=== PATIENT | female | born 1935 | race Caucasian/White ===

== ENCOUNTER → 2018-10-11 | Outpatient (CLI) | payer OTHER, BC ==
[~2018-10-11] MED LIST: ADVAIR 100-501 EACH IH; AMLODIPINE BESY10 MG PO; AMLODIPINE PO; ANTI-ITCH28.4 GM TP; ASPIR 8181 MG PO; ASPIRIN PO; ATORVASTATIN CA40 MG PO; AVELOX 400 MG400 MG PO; BENADRYL ITCH28.3 G1 TP; CALCIUM 600 +1 EAC1 PO; COLACE 100 MG100 MG OR; DENAVIR1.5 GM; FAMOTIDINE PO; FUROSEMIDE10 MG/1 M2 PO; IBUPROFEN200 M1 PO; KEFLEX500 MG PO; LASIX 40 MG TAB40 M1 PO; LORTAB OR; MULTIVITAMINS PO; NOVOLOG FLEX PEN SQ; PLAVIX 75 MG TA75 MG PO; PREDNISONE 20 M20 MG PO; PROVENTIL HFA6.7 G1 INH; PYRIDIUM200 MG PO; SENNA PO; SIMVASTATIN40 MG PO; SINGULAIR 10 MG10 M1 PO; TYLENOL325 MG PO; VENTOLIN HFA 1818 GM INH; VITAMIN D1000 UNI1 PO; VITAMINC500 PO; XANAX 0.5 MG0.5 M1 PO
== END ==
LOC: RAD 09-27 01:31
DX: R92.8 Other abnormal and inconclusive findings on diagnostic imaging of breast (principal)

== ENCOUNTER 2019-01-14 23:10 | Emergency (ER) | payer OTHER, BC ==
[~2019-01-14] VITALS: Ht 167.6 cm; Wt 65.8 kg
[2019-01-14 23:37] LABS: BE(vivo) -4.9 mmol/L (-2 to +3); HCO3 23.2 mmol/L (22.0-26.0); PCO2 57.8 mmHg (35.0-45.0)
[2019-01-14 23:38] LABS: pH 7.221 (7.360-7.450)
[2019-01-14 23:38] LABS: HEMATOCRIT 32.3 % (37.0-47.0); HEMOGLOBIN 10.3 gm/dL (12.0-15.0); MCH 30.8 pg (26.0-34.0); MCV 96.1 fL (80.0-100.0); PLATELET COUNT 359 thou/uL (150-400); RBC 3.36 mil/uL (4.20-5.00); RDW 13.8 % (10.5-14.5); WBC 16.3 thou/uL (4.0-11.0)
[2019-01-14 23:49] LABS: CALCIUM 9.9 mg/dL (8.5-10.1); CREATININE 1.7 mg/dL (0.6-1.0); POTASSIUM 4.8 mmol/L (3.5-5.1)
[2019-01-14 23:56] LABS: ALBUMIN 2.9 g/dL (3.4-5.0); DIRECT BILIRUBIN 0.3 mg/dL (<0.1-0.3); TOTAL BILIRUBIN 0.5 mg/dL (<0.1-1.0); TOTAL PROTEIN 7.6 g/dL (6.4-8.2)
[2019-01-15] MEDS ORDERED: HUMALOG100 UNIT/1 SUBQ (00:26)
[2019-01-15] MEDS ORDERED: FIBER LAX625 MG PO (00:27)
[2019-01-15] MEDS ORDERED: VALSARTAN160 MG PO (00:28)
[2019-01-15] MEDS ORDERED: CRESTOR20 MG PO (00:29)
[2019-01-15] MEDS ORDERED: VITAMIN D3400 UNIT PO (00:30)
[2019-01-15] MEDS ORDERED: SANCTURA XR PO (00:31)
[2019-01-15] MEDS ORDERED: APPLE CIDER VI300 MG (00:32)
[2019-01-15] MEDS ORDERED: PROTONIX40 M1 PO (00:33)
[2019-01-15] MEDS ORDERED: XANAX 0.25 MG0.25 MG PO (00:38)
[2019-01-15 00:55] LABS: ABSOLUTE NEUTROPHILS 11.9 thou/uL (1.4-8.2)
[2019-01-15 05:07] LABS: HCO3 24.1 mmol/L (22.0-26.0); PCO2 58.9 mmHg (35.0-45.0); PO2 85.7 mmHg (80.0-100.0); sO2 94.5 % (92.0-98.0)
[2019-01-15 05:09] LABS: pH 7.229 (7.360-7.450)
[2019-01-15 05:15] LABS: URINE BILIRUBIN 1+ (Negative); URINE BLOOD 2+ (Negative); URINE CLARITY SL CLOUDY; URINE COLOR YELLOW; URINE GLUCOSE-RANDOM* 1+ (Negative); URINE KETONES NEGATIVE (Negative); URINE NITRITE-REFLEX NEGATIVE (Negative); URINE PROTEIN (DIPSTICK) 2+ (Negative); URINE SPECIFIC GRAVITY >= 1.030 (1.005-1.035)
[2019-01-15 05:19] LABS: URINE LEUKOCYTES-REFLEX 1+ (Negative)
[2019-01-15 05:20] LABS: ICTOTEST (BILI CONFIRMATORY) Positive (Negative)
[2019-01-15 05:24] LABS: COARSE GRANULAR CASTS 0-3 Few /LPF (None Seen); FINE GRANULAR CASTS 4-10 Moderate /LPF (None Seen); HYALINE CASTS >10 Many /LPF (None Seen); MUCUS 4-6 Moderate strn/LPF (None Seen); SQUAMOUS >10 Many /LPF (0-3); WBC CASTS 0-3 Few /LPF (None Seen)
[2019-01-15 05:25] LABS: BACTERIA-REFLEX >30 Many /HPF (None Seen); CRYSTALS None Seen /LPF (None Seen); RENAL EPITHELIAL CELLS 0-3 Few /LPF (None Seen); TRANSITIONAL EPITHEL CELL 4-10 Moderate /LPF (None Seen); URINE RBC 3-10 Few /HPF (0-2); URINE WBC-REFLEX 6-15 Few /HPF (0-5)
[2019-01-15 08:03] VITALS: BP 103/40
--- NOTE | 2019-01-16 08:07 | EKG ---
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1935 Requested By: Cindy Palacios Order Number: [id number] MD: Rudy Cao Measurements Intervals [place] Rate: 107 P: 51 [place]: 138 QRS: -45 QRSD: 132 T: -55 QT: 347 QTc: 463 Interpretive Statements Sinus tachycardia Ventricular premature complex RBBB and LAFB Compared to ECG 04/20/2015 12:58:23 Ventricular premature complex(es) now present Right bundle-branch block now present Sinus rhythm no longer present Myocardial infarct finding no longer present Poor R-wave progression no longer present Electronically Signed On 01-16-2019 8:07:47 CDT by Rudy Cao [email or web address] ��������������������������������������������� <ELECTRONICALLY SIGNED> ���������������������������������������� By: Rudy Cao MD ��������������������������������������������� 01/16/19 0807 19 19 Rudy Cao MD /EPI
== END 2019-01-15 07:45 | disposition short-term general hospital (02) ==
LOC: ER 23:10
PROVIDERS: Emergency Medicine
DX: E11.65 Type 2 diabetes mellitus with hyperglycemia (principal); E87.2 Acidosis; N39.0 Urinary tract infection, site not specified; J96.02 Acute respiratory failure with hypercapnia; J96.01 Acute respiratory failure with hypoxia; R41.82 Altered mental status, unspecified; R74.0 Nonspecific elevation of levels of transaminase and lactic acid dehydrogenase [LDH]; G47.30 Sleep apnea, unspecified; J45.909 Unspecified asthma, uncomplicated; Z88.1 Allergy status to other antibiotic agents; Z91.041 Radiographic dye allergy status; Z91.040 Latex allergy status; Z88.2 Allergy status to sulfonamides; Z90.711 Acquired absence of uterus with remaining cervical stump; Z86.2 Personal history of diseases of the blood and blood-forming organs and certain disorders involving the immune mechanism; Z86.73 Personal history of transient ischemic attack (TIA), and cerebral infarction without residual deficits; Z79.4 Long term (current) use of insulin

== ENCOUNTER 2020-07-08 14:30 | Emergency (ER) | payer OTHER, BC ==
[~2020-07-08] VITALS: Ht 165.1 cm; Wt 53.5 kg
[~2020-07-08 14:30] MED LIST changes: +APPLE CIDER VI300 MG; +CRESTOR20 MG PO; +FIBER LAX625 MG PO; +HUMALOG100 UNIT/1 SUBQ; +PROTONIX40 M1 PO; +SANCTURA XR PO; +VALSARTAN160 MG PO; +VITAMIN D3400 UNIT PO; +XANAX 0.25 MG0.25 MG PO
[2020-07-08 18:18] LABS: ABSOLUTE NEUTROPHILS 9.8 thou/uL (1.4-8.2); BASOPHILS 0.5 % (0.0-2.0); EOSINOPHILS 0.2 % (0.0-3.0); HEMATOCRIT 35.9 % (37.0-47.0); LYMPHOCYTES 9.2 % (24.0-44.0); MCH 31.2 pg (26.0-34.0); MCHC 33.5 g/dL (28.0-37.0); MCV 93.2 fL (80.0-100.0); MONOCYTES 6.9 % (1.0-8.0); PLATELET COUNT 315 thou/uL (150-400); POLYS 83.2 % (36.0-66.0); RBC 3.85 mil/uL (4.20-5.00); RDW 14.4 % (10.5-14.5); WBC 11.7 thou/uL (4.0-11.0)
[2020-07-08 18:22] LABS: CALCIUM 9.6 mg/dL (8.5-10.1); CREATININE 0.9 mg/dL (0.6-1.0); POTASSIUM 3.5 mmol/L (3.5-5.1)
[2020-07-08 18:28] LABS: ALBUMIN 3.9 g/dL (3.4-5.0); TOTAL BILIRUBIN 0.3 mg/dL (0.2-1.0); TOTAL PROTEIN 7.4 g/dL (6.4-8.2)
[2020-07-08] MEDS ORDERED: NORCO 5-325 TA1 EAC2 PO (19:10)
[2020-07-08 19:49] VITALS: BP 148/77
--- NOTE | 2020-07-09 07:27 | EKG ---
[facility] [place] [address] ELECTROCARDIOGRAM REPORT Name: STEFAN JACOBO GUILLERMO Room #: DEP [facility]#: [id number] Admission: 07/08/20 Attend Phys: Discharge: 07/08/20 Date of : 33 Report #: [id number] THIS REPORT FOR: cc: Bill Carrasco MD, Michael B. 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[facility] : 1935 Requested By: Sandro King Order Number: [id number] MD: Asim Simmons Measurements Intervals [place] Rate: 76 P: 43 [place]: 136 QRS: -38 QRSD: 117 T: 79 QT: 369 QTc: 415 Interpretive Statements Sinus rhythm Left atrial enlargement Anteroseptal infarct, age indeterminate Baseline wander in lead(s) II Compared to ECG 01/14/2019 23:20:47 Atrial abnormality now present Myocardial infarct finding now present Sinus tachycardia no longer present Ventricular premature complex(es) no longer present Electronically Signed On 07-09-2020 7:27:13 TOOL FILER HAND by Asim Simmons [email or web address] <ELECTRONICALLY SIGNED> By: Asim Simmons MD, FACC 07/09/20 07 99 99 Asim Simmons MD, [facility] /EPI
== END 2020-07-08 19:50 | disposition home or self-care (01) ==
LOC: ER 14:30
PROVIDERS: Emergency Medicine
DX: S42.251A Displaced fracture of greater tuberosity of right humerus, initial encounter for closed fracture (principal); S42.211A Unspecified displaced fracture of surgical neck of right humerus, initial encounter for closed fracture; S80.211A Abrasion, right knee, initial encounter; I10 Essential (primary) hypertension; E11.9 Type 2 diabetes mellitus without complications; J45.909 Unspecified asthma, uncomplicated; Z86.73 Personal history of transient ischemic attack (TIA), and cerebral infarction without residual deficits; Z90.711 Acquired absence of uterus with remaining cervical stump; Z79.2 Long term (current) use of antibiotics; Z79.899 Other long term (current) drug therapy; Z79.4 Long term (current) use of insulin; Z79.82 Long term (current) use of aspirin; Z91.041 Radiographic dye allergy status; Z88.8 Allergy status to other drugs, medicaments and biological substances; Z91.040 Latex allergy status; Z88.2 Allergy status to sulfonamides; W18.39XA Other fall on same level, initial encounter; Y93.01 Activity, walking, marching and hiking; Y92.238 Other place in hospital as the place of occurrence of the external cause; Y99.8 Other external cause status